=== PATIENT | female | born 1980 | race Caucasian/White ===

== ENCOUNTER → 2017-05-15 | Outpatient (CLI) | payer OTHER ==
--- NOTE | 2017-05-15 16:07 | US ---
EXAMINATION TYPE: US OB <=14 wks transvag DATE OF EXAM: 05/15/2017 COMPARISON: NONE CLINICAL HISTORY: R68.89 abnormal clinical finding. pain left side EXAM PERFORMED: Transvaginal (TV) and Transabdominal (TA) EXAM MEASUREMENTS: GESTATIONAL AGE / DATING Physician Established: not established Dates by LMP: (6 weeks/1 days) EDC: 01/07/2018 Dates by First Scan: no prior Dates by Current Scan for: (6 weeks/0 days) EDC: 01/08/2018 MATERNAL ANATOMY Uterus: 7.0 x 4.5 x 8.5 cm Right Ovary: not seen Left Ovary: 2.9 x 1.6 x 1.9 Post CDS / Adnexa: left wnl rt cyst 4.6 x 3.6 x4.0 Presence of free fluid: 2.6 cm Presence of corpus luteal cyst: rt cyst Presence of subchorionic bleed: no GESTATION / SURVEY CRL: 0.4 (6 weeks/0 days) MSD: 1.4 (6 weeks/0 days) Yolk Sac (normal less than 6mm): 3 Heart Rate: 144 bpm Rhythm: Normal IUP: Viable IUP Date of LMP: 04/02/2017 Beta HcG (if available): NA IMPRESSION: There is a 4.6 cm right adnexal cyst. May represent a corpus luteal cyst. There is an intrauterine pr egnancy measuring crown-rump length of 0.4 cm compatible with 6 weeks 0 days and heart rate 144 bpm.
== END | disposition home or self-care (01) ==
LOC: RADUSWWP 15:12
PROVIDERS: ATTEND Obstetrics & Gynecology
DX: O34.81 Maternal care for other abnormalities of pelvic organs, first trimester (principal); Z3A.01 Less than 8 weeks gestation of pregnancy
CPT/HCPCS: 76801; 76817

== ENCOUNTER 2017-08-26 10:25 | Emergency (ER) | payer OTHER ==
[2017-08-26 10:32] VITALS: BP 125/75; PULSE 90; RESP 17; TEMP 98.6
--- NOTE | 2017-08-26 11:00 | ED ---
General Adult HPI - General Chief complaint: Needlestick/Exposure Stated complaint: Needle Stick @ work/no testing Time Seen by Provider: 08/26/17 10:39 Source: patient, RN notes reviewed Mode of arrival: ambulatory Limitations: no limitations - History of Present Illness Initial comments: This is a 37-year-old female who states she was stuck with a needle that was poking through a After the patient was injected for anesthesia. She denies any numbness tingling or loss of function she has stuck in the lateral volar aspect of the fourth finger middle phalanx. She denies any other injury. She does believe her shots are all up-to-date last tetanus shot was up-to-date she is currently . - Related Data Home Medications Medication Instructions Recorded Confirmed Levothyroxine Sodium [Synthroid] 200 mcg PO DAILY 08/26/17 08/26/17 Utc-Fhjz-Jsgtn Acid 1 cap PO HS 08/26/17 08/26/17 [-U Capsule (formulary)] Allergies Allergy/AdvReac Type Severity Reaction Status Date / Time No Known Allergies Allergy Verified 08/26/17 10:38 Review of Systems ROS Statement: Those systems with pertinent positive or pertinent negative responses have been documented in the HPI. ROS Other: All systems not noted in ROS Statement are negative. Past Medical History Past Medical History: Thyroid Disorder Additional Past Medical History / Comment(s): BLOOD IN STOOL, DIARHHEA History of Any Multi-Drug Resistant Organisms: None Reported Past Surgical History: No Surgical Hx Reported Past Anesthesia/Blood Transfusion Reactions: No Reported Reaction Past Psychological History: No Psychological Hx Reported Smoking Status: Former smoker General Exam - General Exam Comments Initial Comments: This is a well-developed well-nourished awake alert oriented 3 female Limitations: no limitations General appearance: alert Head exam: Present: atraumatic, normocephalic, normal inspection Eye exam: Present: normal appearance, PERRL, EOMI. Absent: scleral icterus, conjunctival injection, periorbital swelling ENT exam: Present: normal exam Neck exam: Present: normal inspection Extremities exam: Present: full ROM, normal capillary refill, other (I did evaluate the puncture site with no active bleeding no formed by seen very minimal disruption of the skin. This is no sensorimotor vascular deficits. The site is located to the medial aspect of the proximal middle phalanx of the ring finger on the left hand.). Absent: tenderness Neurological exam: Present: alert, oriented X3, CN II-XII intact Psychiatric exam: Present: normal affect, normal mood Skin exam: Present: warm, dry, normal color Course Vital Signs 08/26/17 10:29 Temperature 98.6 F Pulse Rate 90 Respiratory 17 Rate Blood Pressure 125/75 O2 Sat by Pulse 100 Oximetry Medical Decision Making - Medical Decision Making The patient did bring blood samples from the patient the appropriate testing will be performed patient will be discharged. Disposition Clinical Impression: Needle stick injury of finger of left hand Disposition: HOME SELF-CARE Condition: Good Instructions: Puncture Wound (ED) Referrals: Van Cartwright MD [Primary Care Provider] - 1-2 days
[2017-08-26 12:32] LABS: Hepatitis C Virus IgG Ab Negative (Negative); Hepatitis C Virus IgG Index 0.03
[2017-08-26 19:03] LABS: Hepatitis B Surface Antibody Reactive (Non-Reactive)
== END 2017-08-26 11:19 | disposition home or self-care (01) ==
LOC: EC 10:25
DX: O9A.212 Injury, poisoning and certain other consequences of external causes complicating pregnancy, second trimester (principal); S61.235A Puncture wound without foreign body of left ring finger without damage to nail, initial encounter; E07.9 Disorder of thyroid, unspecified; Z87.891 Personal history of nicotine dependence; Z79.899 Other long term (current) drug therapy; W46.0XXA Contact with hypodermic needle, initial encounter; Z3A.21 21 weeks gestation of pregnancy
CPT/HCPCS: 36415; 86706; 86803; 87390; 99282

== ENCOUNTER → 2018-06-22 | Outpatient (CLI) | payer OTHER ==
[2018-06-22 13:13] LABS: T4, Free (Free Thyroxine) 1.12 ng/dL (0.78-2.19)
== END | disposition home or self-care (01) ==
LOC: LABWHC1 11:53
PROVIDERS: ATTEND Internal Medicine Endocrinology, Diabetes & Metabolism
DX: E89.0 Postprocedural hypothyroidism (principal)
CPT/HCPCS: 36415; 84439; 84443

== ENCOUNTER → 2018-08-22 | Outpatient (CLI) | payer OTHER ==
[2018-08-22 11:35] LABS: T4, Free (Free Thyroxine) 1.63 ng/dL (0.78-2.19)
== END ==
LOC: LABWHC1 10:16
PROVIDERS: ATTEND Internal Medicine Endocrinology, Diabetes & Metabolism
DX: E89.0 Postprocedural hypothyroidism (principal)
CPT/HCPCS: 36415; 84439; 84443

== ENCOUNTER → 2018-09-28 | Outpatient (CLI) | payer OTHER ==
[2018-09-28 20:01] LABS: T4, Free (Free Thyroxine) 1.5 ng/dL (0.80-1.80)
== END ==
LOC: LABWHC1 15:09
PROVIDERS: ATTEND Internal Medicine Endocrinology, Diabetes & Metabolism
DX: E89.0 Postprocedural hypothyroidism (principal)
CPT/HCPCS: 36415; 84439; 84443

== ENCOUNTER → 2018-11-06 | Outpatient (CLI) | payer OTHER ==
[2018-11-06 17:04] LABS: T4, Free (Free Thyroxine) 1.4 ng/dL (0.80-1.80)
== END | disposition home or self-care (01) ==
LOC: LABWHC1 10:33
PROVIDERS: ATTEND Internal Medicine Endocrinology, Diabetes & Metabolism
DX: E89.0 Postprocedural hypothyroidism (principal)
CPT/HCPCS: 36415; 84439; 84443

== ENCOUNTER → 2019-01-18 | Outpatient (CLI) | payer OTHER ==
[2019-01-19 00:17] LABS: T4, Free (Free Thyroxine) 1.4 ng/dL (0.80-1.80)
== END | disposition home or self-care (01) ==
LOC: LABWHC1 13:11
PROVIDERS: ATTEND Internal Medicine Endocrinology, Diabetes & Metabolism
DX: E89.0 Postprocedural hypothyroidism (principal)
CPT/HCPCS: 36415; 84439; 84443

== ENCOUNTER → 2019-03-19 | Outpatient (CLI) | payer OTHER ==
[2019-03-19 23:13] LABS: T4, Free (Free Thyroxine) 1.3 ng/dL (0.80-1.80)
== END | disposition home or self-care (01) ==
LOC: LABWHC1 15:32
PROVIDERS: ATTEND Internal Medicine Endocrinology, Diabetes & Metabolism
DX: E89.0 Postprocedural hypothyroidism (principal)
CPT/HCPCS: 36415; 84439; 84443

== ENCOUNTER 2019-05-20 06:21 | Inpatient (IN) | payer OTHER ==
[2019-05-20] MEDS ORDERED: LIDOCAINE 0.5% (PF) 5 MG/ML (50 ML SDV) SQ PRN (06:41)
[2019-05-20] MEDS ORDERED: OXYTOCIN 10 UNIT/ML 1 ML VIAL IM PRN (06:41)
[2019-05-20] MEDS ORDERED: TERBUTALINE 1 MG/ML VIAL SQ PRN (06:41)
[2019-05-20] MEDS ORDERED: CARBOPROST TROMETHAMINE 250 MCG/ML 1 ML AMP IM PRN (06:41)
[2019-05-20] MEDS ORDERED: METHYLERGONOVINE 0.2 MG/ML 1 ML AMP IM PRN (06:41)
[2019-05-20] MEDS ORDERED: OXYTOCIN 30 UNITS/500 ML NS 30 UNIT in SALINE 1 500ML.BAG IV SCH (06:45)
[2019-05-20 06:59] VITALS: BMI 30.7
[2019-05-20] MEDS: LACTATED RINGERS 1,000 ML IV SCH ×2 (07:00→21:13)
[2019-05-20 07:23] LABS: Basophils % (A) 0 %; Eosinophils # (A) 0.1 k/uL (0-0.7); Eosinophils % (A) 2 %; HCT 33.2 % (34.0-46.0); HGB 10.8 gm/dL (11.4-16.0); Hypochromasia Slight; Lymphocytes # (A) 1.3 k/uL (1.0-4.8); Lymphocytes % (A) 18 %; MCH 26.9 pg (25.0-35.0); MCHC 32.5 g/dL (31.0-37.0); MCV 82.9 fL (80.0-100.0); Mean Platelet Volume 8.9; Monocytes # (A) 0.4 k/uL (0-1.0); Monocytes % (A) 6 %; Neutrophils # (A) 5.2 k/uL (1.3-7.7); Neutrophils % (A) 71 %; Platelet Count 176 k/uL (150-450); RDW 14.2 % (11.5-15.5); WBC 7.2 k/uL (3.8-10.6)
--- NOTE | 2019-05-20 08:49 | P.HPOB ---
History of Present Illness H&P Date: 05/20/19 Chief Complaint: IUP @ 39 1/7 weeks This is a 39-year-old 3 para 2001 at 39 and one sevenths weeks that presents to labor and delivery for induction of labor. Patient is noting normal were occasional contraction, she denies vaginal bleeding or loss of fluid. Patient has been receiving routine care with myself and has been relatively uncomplicated. Patient is struggling with some low back pain and has been S2 to 3 weeks. Next On bloodwork should a blood type of O+, rubella immune, GC surface antigen negative, HIV negative, group beta strep negative Review of Systems Constitutional: Denies fever Ears, nose, mouth and throat: Denies headache Cardiovascular: Reports leg edema Respiratory: Denies dyspnea Gastrointestinal: Denies nausea, Denies vomiting Genitourinary: Reports Musculoskeletal: Reports low back pain Past Medical History Past Medical History: Thyroid Disorder Additional Past Medical History / Comment(s): BLOOD IN STOOL, DIARHHEA History of Any Multi-Drug Resistant Organisms: None Reported Past Surgical History: No Surgical Hx Reported Past Anesthesia/Blood Transfusion Reactions: No Reported Reaction Past Psychological History: No Psychological Hx Reported Smoking Status: Former smoker Past Alcohol Use History: None Reported Past Drug Use History: None Reported - Past Family History Mother Family Medical History: Rheumatoid Arthritis (RA), Syncope Medications and Allergies Home Medications Medication Instructions Recorded Confirmed Type Levothyroxine Sodium [Synthroid] 200 mcg PO DAILY 08/26/17 05/20/19 History Ggf-Qggx-Jonyd Acid 1 cap PO HS 08/26/17 05/20/19 History [-U Capsule (formulary)] Allergies Allergy/AdvReac Type Severity Reaction Status Date / Time No Known Allergies Allergy Verified 05/20/19 06:39 Exam Osteopathic Statement: *. No significant issues noted on an osteopathic structural exam other than those noted in the History and Physical/Consult. Vital Signs Temp Pulse Resp BP Pulse Ox 05/20/19 06:52 96.9 F L 100 18 143/79 99 Intake and Output 05/19/19 05/20/19 05/20/19 22:59 06:59 14:59 Other: Weight 99.79 kg In general this is a well-nourished well-developed female in no acute distress, her breathing is noted to be nonlabored and her heart has a regular rate and rhythm, her abdomen is gravid and appropriate for gestational age, heart tones are noted to be category 1 and she is kate every 4 minutes. On cervical exam she is 4/50/-2 amniotomy is performed and clear fluid was obtained without difficulty. Results Result Diagrams: 05/20/19 07:08 Abnormal Lab Results - Last 24 Hours (Table) 05/20/19 Range/Units 07:08 Hgb 10.8 L (11.4-16.0) gm/dL Hct 33.2 L (34.0-46.0) % Assessment and Plan (1) Term Current Visit: No Status: Acute Code(s): Z34.80 - ENCOUNTER FOR SUPRVSN OF NORMAL , UNSP TRIMESTER SNOMED Code(s): 17452303 Plan: Patient is admitted to labor and delivery for Pitocin induction of labor. We will anticipate spontaneous vaginal delivery later this morning.
[2019-05-20] MEDS ORDERED: SODIUM CHLORIDE 0.9% 100 ML BAG ONE (09:02)
[2019-05-20] MEDS ORDERED: ROPIVACAINE 5MG/ML 20ML VIAL ONE (09:02)
[2019-05-20] MEDS ORDERED: fentaNYL (PF) 50 MCG/ML 5 ML AMP ONE (09:02)
[2019-05-20] MEDS ORDERED: OXYTOCIN 20 UNITS/1000 ML NS 1,000 ML IV SCH (11:45)
[2019-05-20] MEDS ORDERED: diphenhydrAMINE 25 MG CAP PO PRN (11:45)
[2019-05-20] MEDS ORDERED: ACETAMINOPHEN TAB 325 MG TAB PO PRN (11:45)
[2019-05-20] MEDS ORDERED: BENZOCAINE/MENTHOL SPRAY 1 GM/SPRAY AEROSOL TOPICAL PRN (11:45)
[2019-05-20] MEDS ORDERED: WITCH HAZEL 1 EACH MED..PAD TOPICAL PRN (11:45)
[2019-05-20] MEDS ORDERED: HYDROcodone/APAP 5-325MG 1 EACH TAB PO PRN (11:45)
[2019-05-20] MEDS ORDERED: ZOLPIDEM 5 MG TAB PO PRN (11:45)
[2019-05-20] MEDS ORDERED: LANOLIN CREAM 5 GM TUBE TOPICAL PRN (11:45)
[2019-05-20] MEDS ORDERED: HYDROCORTISONE 2.5% RECTAL CREAM 30 GM TUBE RECTAL PRN (11:45)
[2019-05-20] MEDS ORDERED: SIMETHICONE 80 MG CHEWABLE PO PRN (11:45)
[2019-05-20] MEDS ORDERED: diphenhydrAMINE 50 MG/ML 1 ML VIAL IVP PRN ×2 (11:45)
[2019-05-20] MEDS ORDERED: diphenhydrAMINE 50 MG CAP PO PRN (11:45)
--- NOTE | 2019-05-20 11:49 | P.PROBDLV ---
Vaginal Delivery Note - . Vaginal Delivery Note: This is a 39-year-old 3 para 2001 at 39 and one sevenths weeks that presents to labor and delivery for elective induction of labor. Patient was admitted Pitocin induction of labor was begun. Once regular contractions were noted amniotomy was performed and clear fluid was obtained. Patient became uncomfortable requesting epidural, epidural was placed without difficulty by the anesthesia department. She progressed to complete and began pushing and had a normal spontaneous vaginal delivery of a viable female infant delivered at 11:34, weight 7 pounds 0.5 ounces, Apgars of 8 and 9 at one and 5 minutes respectively. After a two-minute delayed the until cord was doubly clamped and cut and the placenta was delivered spontaneously intact with a three-vessel cord. On inspection the patient's vaginal vault no lacerations were noted. The uterus is noted to be firm and below the umbilicus at this time. Estimated blood loss was noted to be 200 mL. Patient and infant tolerated delivery well and are resting comfortably.
[2019-05-20] MEDS: IBUPROFEN 600 MG TAB PO PRN (13:48)
[2019-05-20] MEDS: SENNOSIDES-DOCUSATE SODIUM 1 EACH TAB PO SCH (19:45)
[2019-05-21] MEDS: IBUPROFEN 600 MG TAB PO PRN ×3 (01:23→13:27)
[2019-05-21 07:10] LABS: Basophils % (A) 0 %; Eosinophils # (A) 0.2 k/uL (0-0.7); Eosinophils % (A) 2 %; HCT 31.7 % (34.0-46.0); HGB 10.3 gm/dL (11.4-16.0); Hypochromasia Slight; Lymphocytes # (A) 1.8 k/uL (1.0-4.8); Lymphocytes % (A) 21 %; MCH 27.2 pg (25.0-35.0); MCHC 32.6 g/dL (31.0-37.0); MCV 83.6 fL (80.0-100.0); Mean Platelet Volume 8.2; Monocytes # (A) 0.5 k/uL (0-1.0); Monocytes % (A) 5 %; Neutrophils # (A) 5.9 k/uL (1.3-7.7); Neutrophils % (A) 68 %; Platelet Count 165 k/uL (150-450); RDW 14.3 % (11.5-15.5); WBC 8.6 k/uL (3.8-10.6)
[2019-05-21] MEDS: SENNOSIDES-DOCUSATE SODIUM 1 EACH TAB PO SCH (08:08)
--- NOTE | 2019-05-21 11:00 | P.PNOBGVD ---
Subjective - Subjective Principal diagnosis: PPD 1 Interval history: Patient is doing well . She is ambulating and voiding without difficulty. She is tolerating a regular diet without nausea or vomiting. She denies concerns. Her lochia is moderate. Patient reports: Reports appetite normal, Reports voiding normally, Reports pain well controlled, Reports ambulating normally : doing well Objective - Latest Vital Signs Latest vital signs: Vital Signs Temp Pulse Resp BP 05/21/19 08:00 97.9 F 99 16 138/89 05/21/19 00:00 98.2 F 78 16 122/73 05/20/19 20:00 98.0 F 83 18 121/77 05/20/19 16:00 98.2 F 46 L 18 135/89 05/20/19 14:30 82 16 138/72 05/20/19 13:30 81 16 123/77 05/20/19 12:45 97.9 F 83 16 135/80 05/20/19 12:30 62 16 122/75 05/20/19 12:15 69 16 130/76 05/20/19 12:00 81 16 159/70 05/20/19 11:45 85 16 141/66 Intake and Output 05/20/19 05/21/19 05/21/19 22:59 06:59 14:59 Other: Voiding Method Toilet # Voids 1 - Exam Extremities: Present: normal, edema Abdomen: Present: normal appearance, soft Uterus: Present: normal, firm - Labs Labs: Abnormal Lab Results - Last 24 Hours (Table) 05/21/19 Range/Units 06:55 Hgb 10.3 L (11.4-16.0) gm/dL Hct 31.7 L (34.0-46.0) % Assessment and Plan (1) Term Current Visit: No Status: Acute Code(s): Z34.80 - ENCOUNTER FOR SUPRVSN OF NORMAL , UNSP TRIMESTER SNOMED Code(s): 55240334 (2) Status post vaginal delivery Current Visit: Yes Status: Acute Code(s): TXE4545 - SNOMED Code(s): 637681799 Plan: We'll continue routine care and plan discharge tomorrow.
[2019-05-22] MEDS: SENNOSIDES-DOCUSATE SODIUM 1 EACH TAB PO SCH ×2 (00:40→09:27)
[2019-05-22] MEDS: IBUPROFEN 600 MG TAB PO PRN (06:23)
[2019-05-22 09:26] VITALS: RESP 16
--- NOTE | 2019-05-22 11:19 | P.DS ---
Providers Date of admission: 05/20/19 06:21 Expected date of discharge: 05/22/19 Attending physician: Katarina Renee Primary care physician: Stated None - Discharge Diagnosis(es) (1) Status post vaginal delivery Current Visit: Yes Status: Acute Hospital Course: The patient is a 39-year-old 3 para 2001 admitted at 39 and one sevenths weeks for elective induction of labor. Her was uncomplicated and group B strep status is negative. On labor and delivery, all signs were reassuring. She had Pitocin started followed by artificial rupture of membranes. She ultimately progressed to complete and pushed to a normal spontaneous vaginal delivery of a viable 7 lbs. 1 oz. baby girl with Apgars of 8 at 1 minute and 9 at 5 minutes. There was some concern after the delivery that the may have trisomy 21 despite having had negative genetic screening for trisomy early in the . Testing at this time is pending and the infant remains in the special care nursery for treatment of several ongoing concerns. The patient's course was unremarkable with vital signs remaining stable and her temperature was afebrile throughout. She was deemed stable for discharge on day #2 and was discharged home to follow-up in the office in [address] Renee. Discharge instructions included calling for any significantly increased bleeding or foul-smelling lochia, significantly increased fever abdominal pain, perineal complaints, breast complaints, or anything else that concerned her. She was additionally instructed to have nothing in the vagina for at least 6 weeks time to include intercourse. She understood her instructions and agrees to follow up as noted above. Discharge medications included continue vitamins and melr-pbd-ckvihpa analgesic pain medications as needed. Maternal blood type is O+ and rubella status is immune. Procedures: #1. Pitocin induction #2. Artificial rupture of membranes #3. Epidural analgesia #4. Normal spontaneous vaginal delivery Patient Condition at Discharge: Stable Plan - Discharge Summary New Discharge Prescriptions: No Action Lyt-Fosg-Tfsvm Acid [-U Capsule (formulary)] 1 cap PO HS Levothyroxine Sodium [Synthroid] 200 mcg PO DAILY Discharge Medication List Levothyroxine Sodium [Synthroid] 200 mcg PO DAILY 08/26/17 [History] Sbp-Drge-Apaks Acid [-U Capsule (formulary)] 1 cap PO HS 09 /26/17 [History] Follow up Appointment(s)/Referral(s): Katarina Renee DO [Doctor of Osteopathic Medicine] - 4 Weeks Discharge Disposition: HOME SELF-CARE
[2019-05-22 16:19] VITALS: BP 136/88; PULSE 86; TEMP 98.5
== END 2019-05-22 18:40 | disposition home or self-care (01) | DRG 807 ==
LOC: 4FBP 06:21
PROVIDERS: ADMIT Obstetrics & Gynecology Obstetrics; ATTEND Obstetrics & Gynecology Obstetrics
PROC: 10E0XZZ Delivery of Products of Conception, External Approach (ICD-10-PCS; principal; 2019-05-20)
PROC: 10907ZC Drainage of Amniotic Fluid, Therapeutic from Products of Conception, Via Natural or Artificial Opening (ICD-10-PCS; 2019-05-20)
PROC: 3E033VJ Introduction of Other Hormone into Peripheral Vein, Percutaneous Approach (ICD-10-PCS; 2019-05-20)
PROC: 00HU33Z Insertion of Infusion Device into Spinal Canal, Percutaneous Approach (ICD-10-PCS; 2019-05-20)
PROC: 3E0R3BZ Introduction of Anesthetic Agent into Spinal Canal, Percutaneous Approach (ICD-10-PCS; 2019-05-20)
DX: O99.284 Endocrine, nutritional and metabolic diseases complicating childbirth (principal); Z37.0 Single live birth; E07.9 Disorder of thyroid, unspecified; Z3A.39 39 weeks gestation of pregnancy; Z79.890 Hormone replacement therapy; Z87.891 Personal history of nicotine dependence; Z82.61 Family history of arthritis
CPT/HCPCS: 85025; 86850; 86900; 86901

== ENCOUNTER → 2019-06-21 | Outpatient (CLI) | payer OTHER ==
[2019-06-21 19:29] LABS: T4, Free (Free Thyroxine) 1.9 ng/dL (0.80-1.80)
== END | disposition home or self-care (01) ==
LOC: LABWHC1 10:54
PROVIDERS: ATTEND Internal Medicine Endocrinology, Diabetes & Metabolism
DX: E89.0 Postprocedural hypothyroidism (principal); E04.0 Nontoxic diffuse goiter
CPT/HCPCS: 36415; 84439; 84443

== ENCOUNTER 2019-06-26 14:27 | Emergency (ER) | payer OTHER ==
[2019-06-26 14:35] VITALS: BP 134/79; PULSE 58; RESP 18; TEMP 97.9
[2019-06-26] MEDS ORDERED: MORPHINE SULFATE 4 MG/ML SYRINGE IM STA (14:50)
[2019-06-26] MEDS ORDERED: KETOROLAC 30 MG/ML 1 ML VIAL IM STA (14:50)
[2019-06-26] MEDS ORDERED: ORPHENADRINE 30 MG/ML 2 ML VIAL IM STA (14:50)
--- NOTE | 2019-06-26 15:06 | ED ---
Back Pain HPI - General Chief Complaint: Back Pain/Injury Stated Complaint: Back pain Time Seen by Provider: 06/26/19 14:38 Source: patient, RN notes reviewed, old records reviewed Limitations: no limitations - History of Present Illness Initial Comments: Kristen is a 31-year-old female who presents emergency Department today one month after an epidural. She states that since she received epidural she's been having back pain and pain rating on the left lower extremity. Patient reports that she's had no fevers or chills. She denies saddle anesthesias. Denies any fall or trauma. Patient states that she is breast-feeding. She is currently just managing her. Motrin Tylenol. Today she was going out for due to weakness over left leg and could not handle the pain she came here. Patient's that she saw a chiropractor on which did help at that time. Patient states that seemed to help for 2 days but recurred today. - Related Data Home Medications Medication Instructions Recorded Confirmed Levothyroxine Sodium [Synthroid] 200 mcg PO DAILY 08/26/17 05/20/19 Eot-Avpt-Lequz Acid 1 cap PO HS 08/26/17 05/20/19 [-U Capsule (formulary)] Previous Rx's Medication Instructions Recorded Cyclobenzaprine [Flexeril] 10 mg PO TID #12 tab 06/26/19 Dexamethasone 0.75 mg PO DAILY #12 tab 06/26/19 Allergies Allergy/AdvReac Type Severity Reaction Status Date / Time No Known Allergies Allergy Verified 06/26/19 14:35 Review of Systems ROS Statement: Those systems with pertinent positive or pertinent negative responses have been documented in the HPI. ROS Other: All systems not noted in ROS Statement are negative. Past Medical History Past Medical History: Thyroid Disorder Additional Past Medical History / Comment(s): BLOOD IN STOOL, DIARHHEA History of Any Multi-Drug Resistant Organisms: None Reported Past Surgical History: No Surgical Hx Reported Past Anesthesia/Blood Transfusion Reactions: No Reported Reaction Past Psychological History: No Psychological Hx Reported Smoking Status: Former smoker Past Alcohol Use History: None Reported Past Drug Use History: None Reported - Past Family History Mother Family Medical History: Rheumatoid Arthritis (RA), Syncope General Exam - General Exam Comments Initial Comments: 39-year-old female. Patient appears in moderate discomfort. Limitations: no limitations General appearance: alert, in no apparent distress Head exam: Present: atraumatic, normocephalic, normal inspection Eye exam: Present: normal appearance, PERRL, EOMI. Absent: scleral icterus, conjunctival injection, periorbital swelling ENT exam: Present: normal exam, mucous membranes moist Neck exam: Present: normal inspection. Absent: tenderness, meningismus, lymphadenopathy Respiratory exam: Present: normal lung sounds bilaterally Cardiovascular Exam: Present: regular rate, normal rhythm, normal heart sounds. Absent: systolic murmur, diastolic murmur, rubs, gallop, clicks GI/Abdominal exam: Present: soft, normal bowel sounds. Absent: distended, tenderness, guarding, rebound, rigid Extremities exam: Present: normal inspection, full ROM, normal capillary refill. Absent: tenderness, pedal edema, joint swelling, calf tenderness Back exam: Present: normal inspection. Absent: vertebral tenderness (no vertebra tenderness. Tenderness over left sciatic notch) Neurological exam: Present: alert, oriented X3, CN II-XII intact Psychiatric exam: Present: normal affect, normal mood Skin exam: Present: warm, dry, intact, normal color. Absent: rash Course Vital Signs 06/26/19 14:31 Temperature 97.9 F Pulse Rate 58 L Respiratory 18 Rate Blood Pressure 134/79 O2 Sat by Pulse 100 Oximetry Medical Decision Making - Medical Decision Making Patient is a 39-year-old female presents emergency Department stay with one on the left sciatic nerve pain after epidural. She is no fevers. No saddle anesthesia. She reports that her symptoms resolved after having chiropractic treatment. Days ago but then they returned today. At this time Patient has no lumbar spine tenderness. X-ray of the lumbar spine was completed and did show some L5-S1 degenerative disc disease. States that she is concerned what me dication she can take. Patient was given IM Toradol and Norflex as well as morphine for pain relief this time. Patient states that she is willing to take steroids, muscle relaxers. I'll write the Patient for any narcotics at this time. Discussion is to continue heat and ice over the area as well as following up with her chiropractor and orthopedic client resolution specialist if symptoms continue to persist. All questions were answered return parameters were discussed. - Radiology Data Radiology results: report reviewed Past arthropathy of the lower lumbar spine. Mild degenerative disc disease at L5-S1. Disposition Clinical Impression: Sciatica of left side, Degenerative disc disease at L5-S1 level Disposition: HOME SELF-CARE Condition: Good Instructions (If sedation given, give patient instructions): Sciatica (ED), Acute Low Back Pain (ED) Additional Instructions: Patient advised to continue to wear the brace. Alternate between heat and ice over the back and leg. Patient should take the steroids and muscle relaxers as prescribed. Recommended taking the medications and then breast-feeding 4 hours later. Continue to alternate Motrin and Tylenol. Follow-up with your c or fracture and recommended if symptoms persist continue to follow-up with Dr. Aranda. Prescriptions: Dexamethasone 0.75 mg PO DAILY #12 tab Cyclobenzaprine [Flexeril] 10 mg PO TID #12 tab Is patient prescribed a controlled substance at d/c from ED?: No Referrals: None,Stated [Primary Care Provider] - 1-2 days Marlena Aranda DO [Doctor of Osteopathic Medicine] - 1-2 days Time of Disposition: 16:23
--- NOTE | 2019-06-26 15:38 | XR ---
EXAMINATION TYPE: XR lumbar spine 2 or 3V DATE OF EXAM: 06/26/2019 COMPARISON: NONE HISTORY: 39-year-old female with pain TECHNIQUE: 3 views FINDINGS: 5 lumbar type vertebral bodies. Facet arthropathy lower lumbar spine. Mild degenerative disc height l oss at L5-S1. Vertebral body heights are preserved and alignment is maintained. IMPRESSION: Facet arthropathy lower lumbar spine. Mild degenerative disc disease L5-S1.
[2019-06-26] MEDS ORDERED: MORPHINE SULFATE 4 MG/ML SYRINGE IVP STA (16:26)
== END 2019-06-26 17:17 | disposition home or self-care (01) ==
LOC: EC 14:27
DX: M51.37 Other intervertebral disc degeneration, lumbosacral region (principal); M54.32 Sciatica, left side; E07.9 Disorder of thyroid, unspecified; Z79.890 Hormone replacement therapy; Z87.891 Personal history of nicotine dependence
CPT/HCPCS: 99284; 96374; 96372 ×2; 72100; J2270; J2360; J1885

== ENCOUNTER → 2019-11-04 | Outpatient (CLI) | payer OTHER ==
[2019-11-04 16:29] LABS: T4, Free (Free Thyroxine) 1.3 ng/dL (0.80-1.80)
== END ==
LOC: LABWHC1 10:30
PROVIDERS: ATTEND Internal Medicine
DX: E89.0 Postprocedural hypothyroidism (principal)
CPT/HCPCS: 36415; 84439; 84443

== ENCOUNTER → 2020-11-28 | Outpatient (CLI) | payer OTHER ==
[2020-11-29 00:07] LABS: T4, Free (Free Thyroxine) 1.6 ng/dL (0.80-1.80)
== END | disposition home or self-care (01) ==
LOC: LABWHC1 10:57
PROVIDERS: ATTEND Internal Medicine
DX: E89.0 Postprocedural hypothyroidism (principal)
CPT/HCPCS: 36415; 84439; 84443

== ENCOUNTER → 2021-06-26 | Outpatient (CLI) | payer OTHER ==
--- NOTE | 2021-06-26 10:09 | XR ---
EXAMINATION TYPE: XR KUB DATE OF EXAM: 06/26/2021 COMPARISON: NONE HISTORY: Pain TECHNIQUE: One view abdominal series FINDINGS: The osseous structures are intact. The bowel gas pattern is nonspecific. Sclerosis is seen involving the lumbosacral junction may be technical not as well seen on the AP view of the pelvis consider fol low-up MRI lumbar spine if clinically symptomatic. Hyperdensity overlying the left renal pelvis measu ring 1 cm difficult to determine if is related the bowel. Punctate calcifications the pelvis nonspeci fic but likely vascular. IMPRESSION: 1. Nonspecific abdomen. Correlate for constipation. 2. Hyperdensity in the left upper quadrant difficult to determine if this is related to bowel content or a left renal calculus consider ultrasound of the kidneys as clinically warranted.
== END | disposition home or self-care (01) ==
LOC: RAD 09:24
PROVIDERS: ATTEND Family Medicine
DX: N20.0 Calculus of kidney (principal)
CPT/HCPCS: 74018

== ENCOUNTER → 2022-01-25 | Outpatient (CLI) | payer OTHER ==
[2022-01-25 19:01] LABS: T4, Free (Free Thyroxine) 1.7 ng/dL (0.800-1.800)
== END | disposition home or self-care (01) ==
LOC: LABWHC1 11:40
PROVIDERS: ATTEND Internal Medicine
DX: E89.0 Postprocedural hypothyroidism (principal)
CPT/HCPCS: 36415; 84439; 84443

== ENCOUNTER → 2023-09-23 | Outpatient (CLI) | payer MEDICAID, OTHER ==
--- NOTE | 2023-09-24 15:56 | MM ---
Reason for Exam: Screening (asymptomatic). Patient History: Menarche at age 16. First Full-Term at age 26. Perimenopausal. Maternal aunt had breast cancer. Risk Values: Katia 5 year model risk: 0.7%. NCI Lifetime model risk: 10.0%. Tissue Density: The breast tissue is extremely dense which could obscure a lesion on mammography. Findings: Analyzed By CAD. Pattern appears symmetrical. No suspicious groups of microcalcifications, spiculated or lobular masses, architectural distortion or other secondary signs of malignancy are mammographically apparent. Overall Assessment: Negative, BI-RAD 1 Management: Screening Mammogram of both breasts in 1 year. A negative mammogram report should not preclude additional follow up of suspicious palpable abnormalities. Patient should continue monthly self breast exam. A clinical breast exam by your physician is recommended on an annual basis and results should be correlated with mammographic findings. Electronically signed and approved by: Delfino Hannah D.O. Radiologis
== END | disposition home or self-care (01) ==
LOC: RADMAMWWP 09:30
PROVIDERS: ATTEND Internal Medicine Geriatric Medicine
DX: Z12.31 Encounter for screening mammogram for malignant neoplasm of breast (principal); Z80.3 Family history of malignant neoplasm of breast
CPT/HCPCS: 77063; 77067

== ENCOUNTER → 2023-09-23 | Outpatient (CLI) | payer OTHER ==
--- NOTE | 2023-09-23 11:15 | US ---
EXAMINATION TYPE: US abdomen limited DATE OF EXAM: 09/23/2023 COMPARISON: NONE CLINICAL INDICATION: Female, 43 years old with history of D17.9 BENIGN LIPOMATOUS NEOPLASM; Lump on b ack rib cage x 2 months; Lump on front rib cage just noticed recently TECHNIQUE: FINDINGS: Heterogenous isoechoic circumscribed area at patients AOC x 2 months = 2.15 x 0.61 x 4.07 cm Multiple vs single heterogenous isoechoic circumscribed areas at patients new AOC = 0.98 x 0.25 x 4.0 8 cm. IMPRESSION: Findings suggest multiple lipomas. Correlate clinically.
== END | disposition home or self-care (01) ==
LOC: RADUSWWP 09:33
PROVIDERS: ATTEND Internal Medicine Geriatric Medicine
DX: D17.9 Benign lipomatous neoplasm, unspecified (principal)
CPT/HCPCS: 76705